=== PATIENT | female | born 1980 | race Hispanic/Latino ===

== ENCOUNTER → 2017-11-24 | Day surgery (SDC) | payer BC ==
[~2017-11-24] MED LIST: BLISOVI PO; FENTANYL CITRATE/PF 100MCG/2 ML INJ ONE; MIDAZOLAM HCL 2 MG/2 ML VIAL ONE; PROPOFOL IV EMULSION 10 MG/ML 50 ML VIAL ONE
--- NOTE | 2017-11-24 11:13 | Operative Report ---
DATE OF PROCEDURE: November 24, 2017 REFERRING PHYSICIAN: Dr. Alexis Brewer PROCEDURE PERFORMED: Esophagogastroduodenoscopy with polypectomy and biopsies. INDICATIONS FOR EGD: Upper abdominal pain, heartburn, nausea, and vomiting. MEDICATION: Patient was done under MAC. Please see anesthesiologist's note. PROCEDURE: With the patient in the left lateral decubitus position, the flexible fiberoptic Olympus gastroscope was introduced into the esophagus under direct visualization without any difficulty. There was some patchy erythema noted in the distal esophagus. Also, there was an erosion noted without active bleeding or stigmata of recent hemorrhage. The scope was then advanced with ease into the stomach traversing a small sliding hiatal hernia. Mucosa overlying the antrum and the body revealed some patchy erythema and low-grade to moderate edema, and biopsies were obtained and sent to stain for H. pylori. Several polyps were noted in the body of the stomach. Those were hyperplastic appearing and some were partially excised with the cold biopsy forceps. A polypoid lesion was noted in the prepyloric area that was partially obstructing the pyloric channel, and that was removed per snare electrocautery. The pylorus was then traversed with ease with the scope, which was advanced all the way to the 2nd portion of the duodenum. The scope was then withdrawn slowly. Mucosa overlying the proximal 2nd portion and the duodenal bulb appeared to be within normal limits. The scope was then withdrawn back into the stomach and retroflexed. The mucosa overlying the fundus and cardia appeared to be within normal limits. The scope was then straightened out. The stomach was decompressed. The scope was subsequently withdrawn. Patient tolerated the procedure well. IMPRESSION 1. Erosive distal esophagitis. 2. Small sliding hiatal hernia. 3. Gastritis, biopsied. Biopsies sent to stain for Helicobacter pylori. 4. Gastric polyps, body, hyperplastic appearing, some partially excised with the cold biopsy forceps. 5. Peripyloric polypoid lesion partially obstructing the pyloric channel, removed per snare electrocautery. PLAN: Follow up histology. Initiate Protonix 40 mg 1 p.o. q.a.m. a.c. Job#: [id number] RI cc: ALEXIS BREWER MD
== END | disposition home or self-care (01) ==
LOC: OR 08:08
PROVIDERS: ATTEND Internal Medicine Gastroenterology
DX: K29.50 Unspecified chronic gastritis without bleeding (principal); K31.7 Polyp of stomach and duodenum; K22.10 Ulcer of esophagus without bleeding; K44.9 Diaphragmatic hernia without obstruction or gangrene; B96.81 Helicobacter pylori [H. pylori] as the cause of diseases classified elsewhere; D64.9 Anemia, unspecified; F41.9 Anxiety disorder, unspecified; Z68.35 Body mass index [BMI] 35.0-35.9, adult
CPT/HCPCS: 43239; 43251; 81025; J2250

== ENCOUNTER 2017-12-17 00:43 | Emergency (ER) | payer BC ==
[~2017-12-17] VITALS: Ht 152.4 cm; Wt 81.6 kg
[~2017-12-17 00:43] MED LIST changes: -FENTANYL CITRATE/PF 100MCG/2 ML INJ ONE; -MIDAZOLAM HCL 2 MG/2 ML VIAL ONE; -PROPOFOL IV EMULSION 10 MG/ML 50 ML VIAL ONE
[2017-12-17] MEDS ORDERED: MORPHINE SULFATE 2 MG/ML SYR IV STA ×2 (01:07→04:21)
[2017-12-17] MEDS ORDERED: SODIUM CHLORIDE 0.9% 1000ML 1,000 ML IV STA (01:07)
[2017-12-17] MEDS ORDERED: PANTOPRAZOLE 40 MG 10ML VIAL IV STA (01:07)
[2017-12-17] MEDS ORDERED: ONDANSETRON HCL INJ 2 MG/ML VIAL IV STA ×2 (01:07→04:21)
[2017-12-17 01:50] LABS: BASOPHILS # (AUTO) 0.1 (0.0-0.1); BASOPHILS % 0.4 % (0.0-1.0); EOSINOPHILS # (AUTO) 0.1 (0.0-0.4); EOSINOPHILS % 0.6 % (0.0-6.0); HEMATOCRIT 39.8 % (34.2-44.1); HEMOGLOBIN 13.5 g/dL (12.0-16.0); LYMPHOCYTES # (AUTO) 1.3 (1.0-3.2); LYMPHOCYTES % 9.2 % (18.0-39.1); MEAN CORPUSCULAR HEMOGLOBIN 29.2 pg (28-32); MEAN CORPUSCULAR HGB CONC 33.9 g/dL (31-35); MEAN CORPUSCULAR VOLUME 86.1 fL (81-99); MONOCYTES # (AUTO) 0.5 (0.2-0.8); MONOCYTES % 3.7 % (4.4-11.3); NEUTROPHILS # (AUTO) 11.8 (2.1-6.9); NEUTROPHILS % 85.4 % (38.7-80.0); PLATELET COUNT 323 x10e3/uL (140-360); RED BLOOD COUNT 4.62 x10e6/uL (3.6-5.1); RED CELL DISTRIBUTION WIDTH 12.6 % (11.7-14.4)
[2017-12-17 01:58] LABS: INR 1.07; PROTHROMBIN TIME 13.1 seconds (11.9-14.5)
[2017-12-17 01:59] LABS: PARTIAL THROMBOPLASTIN TIME 26.6 seconds (23.8-35.5)
[2017-12-17 02:07] LABS: ALANINE AMINOTRANSFERASE 18 IU/L (0-55); ALBUMIN 3.9 g/dL (3.5-5.0); ALBUMIN/GLOBULIN RATIO 1.1 (0.8-2.0); ALKALINE PHOSPHATASE 71 IU/L (40-150); AMYLASE 94 U/L (25-125); BLOOD UREA NITROGEN 12 mg/dL (7-26); BUN/CREATININE RATIO 18 (6-25); CALCIUM 9.2 mg/dL (8.4-10.2); CARBON DIOXIDE 22 mmol/L (22-29); CHLORIDE 104 mmol/L (98-107); CREATINE KINASE 32 IU/L (29-168); CREATININE, SERUM 0.67 mg/dL (0.57-1.11); EST GLOMERULAR FILTRATION RATE > 60 ML/MIN (60-); GLUCOSE 123 mg/dL (74-118); LIPASE 27 U/L (8-78); MAGNESIUM 1.6 MG/DL (1.3-2.1); SODIUM 136 mmol/L (136-145)
--- NOTE | 2017-12-17 03:37 | Diagnostic Imaging Report ---
EXAM: US GALLBLADDER INDICATION: Abdominal pain, right upper quadrant COMPARISON: None TECHNIQUE: Transverse and longitudinal sonographic images of the right upper abdomen were obtained. FINDINGS: LIVER: 11.9 cm in the right midclavicular line. Mild increased echogenicity, normal contour. Hyperechoic area in the right lobe of the liver measuring 1 x 1.1 x 1 cm. Main Portal Vein: Normal size with hepatopetal flow. GALLBLADDER: Cholelithiasis and sludge without gallbladder wall thickening or pericholecystic fluid. Negative sonographic Strauss's sign. BILE DUCTS: No intra nor extra-hepatic dilation. Common bile duct measures 0.4 cm. PANCREAS: Visualized portions are normal. RIGHT KIDNEY: 10.5 cm in length Echogenicity: Normal Collecting System: No hydronephrosis Stones: None Cyst/Mass: None FREE FLUID: None in the right upper quadrant of the abdomen IMPRESSION: 1. Cholelithiasis without sonographic evidence of acute cholecystitis. 2. Mild increased echogenicity of the liver, which can be seen in hepatic steatosis. Focal 1 cm hyperechoic area in the right lobe of the liver, which would be consistent with a hemangioma. Signed by: Dr. Ximena Cody M.D. on 12/17/2017 3:34 AM
--- NOTE | 2017-12-17 03:37 | Diagnostic Imaging Report ---
EXAM: CHEST SINGLE (PORTABLE), AP 1 view INDICATION: Upper abdominal pain COMPARISON: None FINDINGS: LINES/TUBES: None LUNGS: No consolidations or edema. PLEURA: No effusions or pneumothorax. HEART AND MEDIASTINUM: Normal size and contour. BONES AND SOFT TISSUES: No acute findings. IMPRESSION: No acute thoracic abnormality. Signed by: Dr. Ximena Cody M.D. on 12/17/2017 3:34 AM
[2017-12-17 03:58] LABS: BILIRUBIN,URINE NEGATIVE (NEGATIVE); KETONES,URINE NEGATIVE (NEGATIVE); LEUKOCYTE ESTERASE ,URINE 2+ (NEGATIVE); NITRITE,URINE NEGATIVE (NEGATIVE); PROTEIN,URINE DIPSTICK NEGATIVE (NEGATIVE); URINE UROBILINOGEN 0.2 mg/dL (0.2 - 1)
[2017-12-17 03:59] LABS: CLARITY,URINE SL CLOUDY (CLEAR); COLOR,URINE YELLOW (YELLOW)
[2017-12-17 04:07] LABS: BACTERIA,URINE FEW /HPF; CALCIUM OXALATE CRYSTALS,UR MODERATE (FEW); EPITHELIAL CELLS,URINE FEW /LPF; RBC,URINE 0-5 /HPF (0-5)
[2017-12-17] MEDS ORDERED: PIPER-TAZ 3.375 GM 50 ML IV STA (04:21)
[2017-12-17 05:22] VITALS: BP 103/71
[2017-12-23] MEDS ORDERED: [UNRECOGNIZED DRUG - OTHER] PO (15:58)
[2017-12-23] MEDS ORDERED: BIAXIN PO (15:59)
[2017-12-23] MEDS ORDERED: METRONIDAZOLE500 MG PO (15:59)
[2017-12-23] MEDS ORDERED: PREVACID30 MG PO (16:00)
[2017-12-23] MEDS ORDERED: AMOXICILLIN500 MG PO (16:00)
== END 2017-12-17 05:27 | disposition home or self-care (01) ==
LOC: ER 00:43
DX: R10.11 Right upper quadrant pain (principal); N30.90 Cystitis, unspecified without hematuria; K80.70 Calculus of gallbladder and bile duct without cholecystitis without obstruction
CPT/HCPCS: 36415; 71045; 76705; 80053; 81001; 82150; 82550; 82553; 83690; 83735; 84484; 85025; 85610; 85730; 96360; 96374; 96376; 99284; J2270; J2405; J2543; J7030

== ENCOUNTER → 2017-12-23 | Outpatient (CLI) | payer BC ==
[~2017-12-23] MED LIST changes: +AMOXICILLIN500 MG PO; +BIAXIN PO; +BUPIVACAINE 0.25%/EPI 30ML SDV INJ ONE; +METRONIDAZOLE500 MG PO; +PREVACID30 MG PO; +[UNRECOGNIZED DRUG - OTHER] PO
[2017-12-23 15:16] LABS: BILIRUBIN,URINE 1+ (NEGATIVE); CLARITY,URINE CLOUDY (CLEAR); COLOR,URINE YELLOW (YELLOW); KETONES,URINE NEGATIVE (NEGATIVE); LEUKOCYTE ESTERASE ,URINE TRACE (NEGATIVE); NITRITE,URINE NEGATIVE (NEGATIVE); PROTEIN,URINE DIPSTICK NEGATIVE (NEGATIVE); URINE UROBILINOGEN 0.2 mg/dL (0.2 - 1)
[2017-12-23 15:16] LABS: BASOPHILS % 0.4 % (0.0-1.0); EOSINOPHILS # (AUTO) 0.1 (0.0-0.4); EOSINOPHILS % 1.8 % (0.0-6.0); HEMOGLOBIN 12.4 g/dL (12.0-16.0); LYMPHOCYTES % 27.9 % (18.0-39.1); MEAN CORPUSCULAR HEMOGLOBIN 28.8 pg (28-32); MEAN CORPUSCULAR HGB CONC 32.6 g/dL (31-35); MEAN CORPUSCULAR VOLUME 88.2 fL (81-99); MONOCYTES # (AUTO) 0.6 (0.2-0.8); MONOCYTES % 7.8 % (4.4-11.3); NEUTROPHILS # (AUTO) 4.5 (2.1-6.9); NEUTROPHILS % 61.8 % (38.7-80.0); PLATELET COUNT 317 x10e3/uL (140-360); RED BLOOD COUNT 4.31 x10e6/uL (3.6-5.1); RED CELL DISTRIBUTION WIDTH 12.7 % (11.7-14.4)
[2017-12-23 15:37] LABS: ALANINE AMINOTRANSFERASE 12 IU/L (0-55); ALBUMIN 3.7 g/dL (3.5-5.0); ALBUMIN/GLOBULIN RATIO 1.1 (0.8-2.0); ALKALINE PHOSPHATASE 58 IU/L (40-150); ANION GAP 12.4 mmol/L (8-16); BLOOD UREA NITROGEN 9 mg/dL (7-26); BUN/CREATININE RATIO 16 (6-25); CARBON DIOXIDE 25 mmol/L (22-29); CHLORIDE 107 mmol/L (98-107); CREATININE, SERUM 0.58 mg/dL (0.57-1.11); EST GLOMERULAR FILTRATION RATE > 60 ML/MIN (60-); GLUCOSE 87 mg/dL (74-118); POTASSIUM 3.4 mmol/L (3.5-5.1); SODIUM 141 mmol/L (136-145)
--- OUTSIDE RECORDS SUMMARY | 2017-12-27 10:53 | XMS REPORT | Continuity of Care Document ---
Author Author [facility] Organization [facility] Address [address] [place] [address] Phone Unavailable Care Team Providers Care Wrapping Clerk Name Role Phone NONSTAFF PCP Unavailable Insurance Providers Guarantor Dotty Briseno Address [address] [place] [address] Email [email or web address] Payer [facility] Policy Number [id number] Subscriber's Name John Guzman Relationship 01 Group Number [id number] Group Name Patient Conversation Media Effective Date 17 Advance Directives Directive Response Recorded Date/Time Does the patient have an advance directive? No 11/21/17 8:53am If yes, is advance directive on file with [facility]? No 11/21/17 8:53am If not on file with [facility] will patient provide a copy? No 11/21/17 8:53am Do you have a Directive to Physician? No 12/17/17 12:41am Do you have a Medical Power of Vice President Of Talent Acquisition? No 12/17/17 12:41am Do you have an out of hospital Do Not Resuscitate Order? No 12/17/17 12:41am Do you have any special needs we should be aware of? No 12/17/17 12:41am Do you have a support person here with you today? No 12/17/17 12:41am Did patient receive Notice of Privacy Practices? Yes 12/17/17 12:41am Did patient receive patient rights and responsibilities? Yes 12/17/17 12:41am Problems No problem information available. Medications Current Home Medications Medication Dose Units Route Directions Days Qty Instructions Start Date Blis[place] 1 Tab Oral Daily Social History Smoking Status Start Date Stop Date Never Smoker Hospital Discharge Instructions No hospital discharge instruction information available. Plan of Care Discharge Date 12/17/17 5:27am Disposition HOME, SELF-CARE Condition at Discharge Stable Instructions/Education Provided Cholelithiasis Urinary Tract Infection - Women Forms Provided Work/School Excuse Prescriptions See Medication Section Additional Instructions/Education FOLLOW UP WITH YOUR DOCTOR TUESDAY AND SURGEON DR. JORGE MOLINA DRINK PLENTY OF FLUIDS AVOID FATTY, FRIED, GREASY, SPICY FOODS CONTINUE ANTIBIOTICS FOR H PYLORI TAKE MEDS PRESCRIBED Functional Status No functional status information available. Allergies, Adverse Reactions, Alerts No known allergies. Immunizations No immunization information available. Vital Signs Acute Vital Signs Vital Response Date/Time Pulse Pulse Rate (adult) 84 bpm (60 - 90) 12/17/2017 5:22am Respiratory Rate 18 bpm (12 - 24) 12/17/2017 5:22am Blood Pressure 103/71 mm Hg 12/17/2017 5:22am Height 5 ft 0 in 12/17/2017 12:58am Weight 180 lb 12/17/2017 12:58am Body Mass Index 35.2 kg/m^2 12/17/2017 12:58am Results Laboratory Results Test Name Result Units Flags Reference Collection Date/Time Result Date/ Time Comments Urine Test NEGATIVE NEGATIVE 11/24/2017 8:32am 11/24/2017 8 :47am White Blood Count 13.81 x10e3/uL H 4.8-10.8 12/17/2017 1:15am 2017 1:50am Red Blood Count 4.62 x10e6/uL 3.6-5.1 12/17/2017 1:15am 12/17/2017 1: 50am Hemoglobin 13.5 g/dL 12.0-16.0 12/17/2017 1:15am 12/17/2017 1:50am Hematocrit 39.8 % 34.2-44.1 12/17/2017 1:15am 12/17/2017 1:50am Mean Corpuscular Volume 86.1 fL 81-99 12/17/2017 1:15am 12/17/2017 1: 50am Mean Corpuscular Hemoglobin 29.2 pg 28-32 12/17/2017 1:1512/17/2017 1:50am Mean Corpuscular Hemoglobin Concent 33.9 g/dL 31-35 12/17/2017 1:1512/17/2017 1:50am Red Cell Distribution Width 12.6 % 11.7-14.4 12/17/2017 1:152017 1:50am Platelet Count 323 x10e3/uL 140-360 12/17/2017 1:1512/17/2017 1: 50am Neutrophils (%) (Auto) 85.4 % H 38.7-80.0 12/17/2017 1:1512/17/2017 1 :50am Lymphocytes (%) (Auto) 9.2 % L 18.0-39.1 12/17/2017 1:1512/17/2017 1: 50am Monocytes (%) (Auto) 3.7 % L 4.4-11.3 12/17/2017 1:15am 12/17/2017 1: 50am Eosinophils (%) (Auto) 0.6 % 0.0-6.0 12/17/2017 1:1512/17/2017 1: 50am Basophils (%) (Auto) 0.4 % 0.0-1.0 12/17/2017 1:1512/17/2017 1:50am IM GRANULOCYTES % 0.7 % 0.0-1.0 12/17/2017 1:1512/17/2017 1:50am Neutrophils # (Auto) 11.8 H 2.1-6.9 12/17/2017 1:1512/17/2017 1: 50am Lymphocytes # (Auto) 1.3 1.0-3.2 12/17/2017 1:1512/17/2017 1:50am Monocytes # (Auto) 0.5 0.2-0.8 12/17/2017 1:1512/17/2017 1:50am Eosinophils # (Auto) 0.1 0.0-0.4 12/17/2017 1:15am 12/17/2017 1:50am Basophils # (Auto) 0.1 0.0-0.1 12/17/2017 1:15am 12/17/2017 1:50am Absolute Immature Granulocyte (auto 0.09 x10e3/uL 0-0.1 12/17/2017 1: 15am 12/17/2017 1:50am Prothrombin Time 13.1 seconds 11.9-14.5 12/17/2017 1:15am 12/17/2017 2: 03am Prothromb Time International Ratio 1.07 12/17/2017 1:15am 2017 2:03am Oral Anticoagulant Therapy INR Values: 1. Low Intensity Therapy 1.5 - 2.0 2. Moderate Intensity Therapy 2.0 - 3.0 3. High Intensity Therapy(1) 2.5 - 3.5 4. High Intensity Therapy(2) 3.0 - 4.0 5. Panic Value INR > 5.0 Activated Partial Thromboplast Time 26.6 seconds 23.8-35.5 12/17/2017 1: 15am 12/17/2017 2:03am Urine Color YELLOW YELLOW 12/17/2017 3:50am 12/17/2017 3:59am Urine Clarity SL CLOUDY CLEAR 12/17/2017 3:50am 12/17/2017 3:59am Urine Specific [place] 1.025 1.010-1.025 12/17/2017 3:50am 2017 3:59am Urine pH 5 5 - 7 12/17/2017 3:50am 12/17/2017 3:59am Urine Leukocyte Esterase 2+ H NEGATIVE 12/17/2017 3:50am 12/17/2017 3: 59am Urine Nitrite NEGATIVE NEGATIVE 12/17/2017 3:50am 12/17/2017 3:59am Urine Protein NEGATIVE NEGATIVE 12/17/2017 3:50am 12/17/2017 3:59am Urine Glucose (UA) NEGATIVE NEGATIVE 12/17/2017 3:50am 12/17/2017 3: 59am Urine Ketones NEGATIVE NEGATIVE 12/17/2017 3:50am 12/17/2017 3:59am Urine Urobilinogen 0.2 mg/dL 0.2 - 1 12/17/2017 3:50am 12/17/2017 3: 59am Urine Bilirubin NEGATIVE NEGATIVE 12/17/2017 3:50am 12/17/2017 3: 59am Urine Blood 1+ H NEGATIVE 12/17/2017 3:50am 12/17/2017 3:59am Urine WBC 11-20 /HPF H 0-5 12/17/2017 3:50am 12/17/2017 4:07am Urine RBC 0-5 /HPF 0-5 12/17/2017 3:50am 12/17/2017 4:07am Urine Bacteria FEW /HPF NONE 12/17/2017 3:50am 12/17/2017 4:07am Urine Epithelial Cells FEW /LPF NONE 12/17/2017 3:50am 12/17/2017 4: 07am Urine Calcium Oxalate Crystals MODERATE H FEW 12/17/2017 3:50am 2017 4:07am Sodium Level 136 mmol/L 136-145 12/17/2017 1:15am 12/17/2017 2:10am Potassium Level 4.0 mmol/L 3.5-5.1 12/17/2017 1:15am 12/17/2017 2:10am Chloride Level 104 mmol/L 98-107 12/17/2017 1:15am 12/17/2017 2:10am Carbon Dioxide Level 22 mmol/L 22-29 12/17/2017 1:15am 12/17/2017 2: 10am Anion Gap 14.0 mmol/L 8-16 12/17/2017 1:15am 12/17/2017 2:10am Blood Urea Nitrogen 12 mg/dL 7-26 12/17/2017 1:15am 12/17/2017 2:10am Creatinine 0.67 mg/dL 0.57-1.11 12/17/2017 1:15am 12/17/2017 2:10am BUN/Creatinine Ratio 18 6-25 12/17/2017 1:15am 12/17/2017 2:10am Estimat Glomerular Filtration Rate > 60 ML/MIN 60- 12/17/2017 1:15am 2:10am Ranges were taken from the National Kidney Disease Education Program and the National Kidney Foundation literature. Reference ranges: 60 or greater: Normal 16-59 (for 3 consecutive months): Chronic kidney disease 15 or less: Kidney failure Glucose Level 123 mg/dL H 74-118 12/17/2017 1:15am 12/17/2017 2:10am Calcium Level 9.2 mg/dL 8.4-10.2 12/17/2017 1:15am 12/17/2017 2:10am Magnesium Level 1.6 MG/DL 1.3-2.1 12/17/2017 1:15am 12/17/2017 2:10am Total Bilirubin 0.6 mg/dL 0.2-1.2 12/17/2017 1:15am 12/17/2017 2:10am Aspartate Amino Transf (AST/SGOT) 13 IU/L 5-34 12/17/2017 1:15am 2017 2:10am Alanine Aminotransferase (ALT/SGPT) 18 IU/L 0-55 12/17/2017 1:15am 12/2017 2:10am Total Protein 7.5 g/dL 6.5-8.1 12/17/2017 1:15am 12/17/2017 2:10am Albumin 3.9 g/dL 3.5-5.0 12/17/2017 1:1512/17/2017 2:10am Globulin 3.6 g/dL H 2.3-3.5 12/17/2017 1:1512/17/2017 2:10am Albumin/Globulin Ratio 1.1 0.8-2.0 12/17/2017 1:15am 12/17/2017 2: 10am Alkaline Phosphatase 71 IU/L 40-150 12/17/2017 1:15am 12/17/2017 2: 10am Creatine Kinase 32 IU/L 29-168 12/17/2017 1:15am 12/17/2017 2:10am Creatine Kinase MB 0.60 ng/mL 0-5.0 12/17/2017 1:15am 12/17/2017 2: 14am Troponin I < 0.001 ng/mL 0-0.300 12/17/2017 1:15am 12/17/2017 2:14am Amylase Level 94 U/L 25-125 12/17/2017 1:15am 12/17/2017 2:10am Lipase 27 U/L 8-78 12/17/2017 1:15am 12/17/2017 2:10am Procedures Procedure Status Date Provider(s) EGD BIOPSY SINGLE/MULTIPLE Completed 11/24/17 HOLA LUNDBERG MD EGD REMOVE LESION SNARE Completed 11/24/17 HOLA LUNDBERG MD US gallbladder Active 12/17/17 JAMAICA BARROSO MD Encounters Encounter Location Arrival/Admit Date Discharge/Depart Date Attending Provider Departed Emergency Room [facility] 12/17/17 12:43am 12/17 5:27am JAMAICA BARROSO MD Registered [facility] 11/24/17 8:08am HOLA LUNDBERG MD
--- OUTSIDE RECORDS SUMMARY | 2017-12-27 10:53 | XMS REPORT ---
Author Author [facility] Address Unknown Phone Unavailable Care Team Providers Care Line Palletizer Name Role Phone JAMAICA BARROSO Unavailable Unavailable Problems This patient has no known problems. Allergies, Adverse Reactions, Alerts This patient has no known allergies or adverse reactions. Medications This patient has no known medications. Results Test Description Test Time Test Comments Text Results Atomic Results Result Comments CHEST SINGLE (PORTABLE) [place] [address] Patient Name: ELISEO TAN MR #: [id number] : 1980 Age/Sex: 36/F Req #: [id number] Adm Physician: Ordered by: JAMAICA BARROSO MD Report #: [id number] Location: ER Room/Bed: Procedure: [id number] DX/CHEST SINGLE (PORTABLE) Exam Date: 12/17/17 Exam Time: 0310 REPORT STATUS: Signed EXAM: CHEST SINGLE (PORTABLE), AP 1 view INDICATION: Upper abdominal pain COMPARISON: None FINDINGS: LINES/TUBES: None LUNGS: No consolidations or edema. PLEURA: No effusions or pneumothorax. HEART AND MEDIASTINUM: Normal size and contour. BONES AND SOFT TISSUES: No acute findings. IMPRESSION: No acute thoracic abnormality. Signed by: Dr. Yadiel Cody M.D. on 12/17/2017 3:34 AM Dictated By: YADIEL CODY MD Transcribed By: JOSE on 12/17/17333 COPY TO: JAMAICA BARROSO MD US GALLBLADDER [place] [address] Patient Name: ELISEO TAN MR #: [id number] : 1980 Age/Sex: 36/F Req #: [id number] Adm Physician: Ordered by: JAMAICA BARROSO MD Report #: [id number] Location: ER Room/Bed: Procedure: [id number] US/US GALLBLADDER Exam Date: 12/17/17 Exam Time: 227 REPORT STATUS: Signed EXAM: US GALLBLADDER INDICATION: Abdominal pain, right upper quadrant COMPARISON: None TECHNIQUE: Transverse and longitudinal sonographic images of the right upper abdomen were obtained. FINDINGS: LIVER: 11.9 cm in the right midclavicular line. Mild increased echogenicity, normal contour. Hyperechoic area in the right lobe of the liver measuring 1 x 1.1 x 1 cm. Main Portal Vein: Normal size with hepatopetal flow. GALLBLADDER: Cholelithiasis and sludge without gallbladder wall thickening or pericholecystic fluid. Negative sonographic Strauss's sign. BILE DUCTS: No intra nor extra- hepatic dilation. Common bile duct measures 0.4 cm. PANCREAS: Visualized portions are normal. RIGHT KIDNEY: 10.5 cm in length Echogenicity: Normal Collecting System: No hydronephrosis Stones: None Cyst/Mass: None FREE FLUID: None in the right upper quadrant of the abdomen IMPRESSION: 1. Cholelithiasis without sonographic evidence of acute cholecystitis. 2. Mild increased echogenicity of the liver, which can be seen in hepatic steatosis. Focal 1 cm hyperechoic area in the right lobe of the liver, which would be consistent with a hemangioma. Signed by: Dr. Yadiel Cody M.D. on 12/17/2017 3:34 AM Dictated By: YADIEL CODY MD 3 Transcribed By : JOSE on 12/17/17333 COPY TO: JAMAICA BARROSO MD
== END | disposition home or self-care (01) ==
LOC: LAB 05:00 → OR 12-27 10:51 → EDSTATUS 12-27 12:30
PROVIDERS: ATTEND Surgery
DX: K80.10 Calculus of gallbladder with chronic cholecystitis without obstruction (principal); Z53.09 Procedure and treatment not carried out because of other contraindication
CPT/HCPCS: 36415; 80053; 81003; 81025; 85025